=== PATIENT | female | born 1970 | race Two or more races ===

== ENCOUNTER 2025-01-26 13:45 | Outpatient (OUT) | payer MEDICAID, SELFPAY ==
--- OUTSIDE RECORDS SUMMARY | 2025-01-26 13:48 | XMS_ITS ---
Author Organization [facility] Address [address] [place] [address] Care Team Providers Care Crop Nutrition Scientist Name Role Phone Unavailable Primary Care Provider Unavailabl e Hepatitis C Status:Declined (Declined) Start date:01/13/2025 Enrollment date:01/13/2025 End date:01/13/2025 Decline reason:Unable to seek referral from outside provider/ does not use [facility] health system Continued Care and Services Coordination
--- OUTSIDE RECORDS SUMMARY | 2025-01-26 13:48 | XMS_ITS | Encounter Summary ---
Author Organization [facility] Address [address] [place], [place] [id number] Care Team Providers Care Supervisor Boiler Repair Name Role Phone Unavailable Primary Care Provider Unavailabl e Source Comments In the event this information is protected by the Federal Confidentiality of Alcohol and Drug AbusePatient Records regulations: The Federal rules restrict any use of the information to criminally investigate or prosecute any alcohol or drug abuse patient.[facility] Reason for Visit * Reason Onset Date Comments SPP Hepatology - Follow-up 01/13/2025 HCV+n ote Encounter Details Date Type Department Care Team (Latest Contact Info) Description 01/13/2025 Specialty Pharmacy [facility] [address] [place] [address] Tea Leyva RPh SPP Hepatology - Follow-up (HCV+note) Social History Tobacco Use Types Packs/Day Years Used Date Smoking Tobacco: Never Assessed Comments Unknown Sex and Gender Information Value Date Recorded Sex Assigned at Not on file Legal Sex Female 12:04 PM EDT Gender Identity Not on file Sexual Orientation Not on file documented as of this encounter Progress Notes * Tea Leyva RPh - 01/13/2025 8:55 AM EDT Chart review reveals a recent lab test performed at [facility]. Unexpected results found as part of testing for Hepatitis C (HCV) HCV RNA Date Value Ref Range Status 01/08/2025 Detected (A) Not detected Final HCV RNA (IU/mL) Date Value Ref Range Status 01/08/2025 1,210,000 (H) IU/mL Final Ordering Provider is outside provider (lab requisition) Lab result shows patient has Chronic Hepatitis C B18.2 Prior Treatment: not known Allergies: Not on File GT needs to be determined HCV Treatment plan: -Candidate for treatment: patient may be eligible for treatment but is not connected to care with [facility] provider PLAN: Unable to follow up with patient about abnormal lab result since patient does not follow [facility] provider. Recommend patient establish and follow up with own provider to discuss HCV treatment. If patient were to express interest in being evaluated for HCV treatment, please place referral to HCV Ambulatory Clinic. Engage this patient in a conversation about the value in getting treatment then place the referral. To find the referral order, type pharmacy in the order and choose Consult to [facility] Ambulatory [facility] Pharmacy - it's the third one down under procedures (referral [id number]). I will get the referral once this order is signed and would manage your patient's HCV care including ordering labs, complying with insurance formulary, creating a treatment plan and following patientuntil final viral load (SVR12) so we can document cure. Tea Leyva RPh documented in this encounter Plan of Treatment Not on file documented as of this encounter Visit Diagnoses Not on filedocumented in this encounter
--- OUTSIDE RECORDS SUMMARY | 2025-01-26 13:48 | XMS_ITS | Clinical Summary ---
Author Organization [facility] Address [address] [place] [address] Care Team Providers Care Creative Writing Professor Name Role Phone Abdirahman Taylor PA-C Primary Care Provider [phone] Allergies Active Allergy Reactions Criticality Noted Date Comments Codeine GI Intolerance High 12/13/2017 Ibuprofen GI Intolerance 06/16/2023 Medications hydrOXYzine (VISTARIL) 25 MG capsuleIndicat ions:Generaliz ed anxiety disorder,Major depressive disorder, severe (HCC) Take 1 (one) capsule (25 mg total) by mouth 3 (three) times a day as needed for itching . 30 capsule 5 01/07/20 26 Active escitalopram oxalate (LEXAPRO) 10 MG tabletIndicati ons:Generalize d anxiety disorder,Major depressive disorder, severe (HCC) Take 1 (one) tablet (10 mg total) by mouth daily . 30 tablet 11 5 01/07/20 26 Active dextroamphetam ine-amphetamin e (ADDERALL) 20 mg tablet Take 1 (one) tablet (20 mg total) by mouth 2 (two) times a day . 1 01/09/20 25 Discontinued citalopram (CELEXA) 40 MG tablet Take 1 (one) tablet (40 mg total) by mouth daily . 1 01/09/20 25 Discontinued metoclopramide (REGLAN) 10 MG tablet Take 0.5 (one-half) tablet (5 mg total) by mouth 3 (three) times a day as needed (nausea or dizziness) . 10 tablet 1 01/09/20 25 Discontinued ondansetron (ZOFRAN) 4 MG tablet Take 1 (one) tablet (4 mg total) by mouth every 8 (eight) hours as needed for nausea . 20 tablet 3 01/09/20 25 Discontinued prochlorperazi ne (Compazine) 10 MG tablet Take 1 (one) tablet (10 mg total) by mouth every 6 (six) hours as needed for nausea . 20 tablet 5 01/09/20 25 Discontinued Active Problems Problem Noted Date Diagnosed Date Alcohol use disorder, severe, dependence 025 Moderate episode of recurrent major depressive d isorder 12/23/2024 Renal stone 04/24/2023 Symptomatic cholelithiasis 09/06/2021 Assessment & Plan (09/06/2021 5:30 AM EST): RUQ pain started 2am 09/05/[address]- Gallbladder wall thickening. RUQ u/s- cholelithiasis with wall thickening- mild fluid in gallbladder wall with pericholecystic fat -wbc 8.15, afebrile, VS stable. -AST 60, ALT 152. Normal Tbili 0.2 and lipase at 163. -NPO, MIVF. Pain control -Start IV Zosyn. Acute cholecystitis 09/06/2021 Encounters Date Type Department Care Team Description 01/06/2025 8:50 AM EDT Office Visit [facility] [address] [place] [address] Abdirahman Taylor PA-C Alcohol use disorder, severe, dependence (HCC) (Primary Dx); Generalized anxiety disorder; Major depressive disorder, severe (HCC); Class 1 obesity due to excess calories with body mass index (BMI) of 30.0 to 30.9 in adult, unspecified whether serious comorbidity present 01/06/2025 Travel 12/28/2024 3:55 PM EDT - 12/29/2024 11:45 AM EDT Emergency [facility] Emergency Department [address] [place] [address] Jose Rivero, DO Discharge Disposition: Home 12/28/2024 Travel 12/23/2024 4:19 PM EDT - 12/24/2024 10:35 AM EDT Emergency [facility] Emergency Department [address] [place] [phone] Jenna Gomez MD Discharge Disposition: Home 12/23/2024 Travel from Last 3 Months Immunizations Immunization Administration Dates Next Due Hep A / Hep B([facility]) 09/10/2019 Social History Tobacco Use Types Packs/Day Years Used Date Smoking Tobacco: Every Day Cigarettes Passive Smoke Exposure: Current Smokeless Tobacco: Never Tobacco Cessation:Ready to Q uit: Not Asked; Counseling Given: Not Answered Alcohol Use Standard Drinks/Week Comments Yes 2 (1 standard drink = 0.6 oz pur e alcohol) daily Comments No Sex and Gender Information Value Date Recorded Sex Assigned at Not on file Legal Sex Female 5:32 AM EDT Gender Identity Female 12/28/2024 5:49 PM EDT Sexual Orientation Straight 12/28/2024 5: 49 PM EDT Last Filed Vital Signs Vital Sign Reading Time Taken Comments Blood Pressure 129/93 01/06/2025 8:57 AM EDT Pulse 77 01/06/2025 8:57 AM EDT Temperature 36.7 C (98.1 F) 12/28/2024 4:15 PM EDT Respiratory Rate 16 01/06/2025 8:57 AM EDT Oxygen Saturation 97% 01/06/2025 8:57 AM EDT Inhaled Oxygen Concentration - - Weight 74.4 kg (164 lb) 01/06/2025 8:57 AM EDT Height 157.5 cm (5' 2 ) 01/06/2025 8:57 AM EDT Body Mass Index 30 01/06/2025 8:57 AM EDT Plan of Treatment Upcoming Encounters Date Type Department Care Team (Late st Contact Info) Description 01/29/2025 9:00 AM EDT Office Visit [facility] [address] [place] [phone] Kymberly Hawk, YANNICK [address] [place] [address] Health Maintenance Due Date Last Done Comments CT Colonography 1969 Fecal DNA 1969 Fecal occult blood test (FOBT,FIT) 1969 Tetanus: Every 10yrs 1969 Wellness Visit 1972 HIV Screening 1984 Hepatitis C Screening 1987 Pneumococcal Vaccine: Age 50 + (1 of 2 - PCV) 1988 Pap Smear 1990 Cervical Cancer Screening 1999 HPV/Cotest 1999 Mammogram 2009 Flexible sigmoidoscopy 2019 Zoster Vaccines (2 of 2) 04/04/2022 02/07/2022 COVID-19 Vaccine (3 - season) 03/16/202402/2022, 08/03/2021 Influenza Vaccine (#1) 2025 Depression Remission Assessment (PHQ9) 11/06/2025 Colonoscopy 01/01/2028 12/31/2017 Colorectal Cancer Screening/Monitoring 01/01/2028 Procedures Procedure Name Priority Date/Time Associated Diagnosis Comments ALCOHOL, MEDICAL Add-On 12/29/2024 6:38 AM EDT MINT GREEN TOP STAT 12/28/2024 7:25 PM EDT RAINBOW DRAW STAT 12/28/2024 7:25 PM EDT RIVERA TOP STAT 12/28/2024 7:24 PM EDT LIGHT BLUE TOP STAT 12/28/2024 7:24 PM EDT LIGHT GREEN TOP STAT 12/28/2024 7:24 PM EDT LAVENDER TOP STAT 12/28/2024 7:24 PM EDT RAINBOW DRAW STAT 12/28/2024 7:24 PM EDT ALCOHOL, MEDICAL MARIA DE JESUS 12/28/2024 7:24 PM EDT URINALYSIS STAT 12/28/2024 4:00 PM EDT DRUGS OF ABUSE SCREEN, URINE STAT 12/28/2024 4:00 PM EDT ALCOHOL, MEDICAL Routine 12/23/2024 11:0 5 PM EDT CBC WITH AUTO DIFFERENTIAL STAT 12/23/2024 4:54 PM EDT LIGHT GREEN TOP STAT 12/23/2024 4:54 PM EDT RAINBOW DRAW STAT 12/23/2024 4:54 PM EDT COMPREHENSIVE METABOLIC PANEL MARIA DE JESUS 12/23/2024 4:54 PM EDT CBC WITH AUTO DIFFERENTIAL STAT 12/23/2024 4:54 PM EDT DRUGS OF ABUSE SCREEN, URINE STAT 12/23/2024 4:54 PM EDT HCG, SERUM, QUALITATIVE STAT 12/23/2024 4:54 PM EDT ALCOHOL, MEDICAL MARIA DE JESUS 12/23/2024 4:54 PM EDT from Last 3 Months Results * Alcohol Level (12/29/2024 6:38 AM EDT) Only the most recent of4 resultswithin the time period is included. Alcohol (Medical) <10.0 <10.0 mg/dL 12/29/2024 7:02 AM EDT LAB Comment:Alcohol cutoff: <10. 00 mg/dL = None Detected Blood BLOOD SPECIMEN / Unknown Venipuncture / Unknown 12/29/2024 6:38 AM EDT 12/29/2024 6:40 AM EDT us Jose Rivero DO LAB BLOOD ORDERABLES Final R esult LAB [address] [place] [address] * Mint Green Top (12/28/2024 7:25 PM EDT) Extra Tube Hold for add-ons. 12/28/2024 9:59 PM EDT LAB Comment:Auto resulted. Blood BLOOD SPECIMEN / Unknown Venipuncture / Unknown 12/28/2024 7:25 PM EDT 12/28/2024 7:28 PM EDT us Jose S Rivero DO LAB BLOOD ORDERABLES Final R esult Performing Organization Address City/[facility] Co de Phone Number LAB [address] [place] [address] * Gold Top (12/28/2024 7:24 PM EDT) Only the most recent of2 resultswithin the time period is included. Extra Tube Hold for add-ons. 12/28/2024 11:58 PM EDT LAB Comment:Auto resulted. Blood BLOOD SPECIMEN / Unknown Venipuncture / Unknown 12/28/2024 7:24 PM EDT 12/28/2024 7:28 PM EDT us Jose Quezada Rivero DO LAB BLOOD ORDERABLES Final R esult Performing Organization Address [facility] Co de Phone Number LAB [address] [place] [address] * Rivera Top (12/28/2024 7:24 PM EDT) Extra Tube Hold for add-ons. 12/28/2024 9:59 PM EDT LAB Comment:Auto resulted. Blood BLOOD SPECIMEN / Unknown Venipuncture / Unknown 12/28/2024 7:24 PM EDT 12/28/2024 7:28 PM EDT us Jose S Rivero DO LAB BLOOD ORDERABLES Final R esult Performing Organization Address City/[facility] Co de Phone Number LAB [address] [place] [address] * Lavender Top (12/28/2024 7:24 PM EDT) Extra Tube Hold for add-ons. 12/28/2024 9:59 PM EDT LAB Comment:Auto resulted. Blood BLOOD SPECIMEN / Unknown Venipuncture / Unknown 12/28/2024 7:24 PM EDT 12/28/2024 7:28 PM EDT JoseDeepFlexner DO LAB BLOOD ORDERABLES Final R esult Performing Organization Address City/[facility] Co de Phone Number LAB [address] [place] [address] * Light Blue Top (12/28/2024 7:24 PM EDT) Extra Tube Hold for add-ons. 12/28/2024 9:59 PM EDT LAB Comment:Auto resulted. Blood BLOOD SPECIMEN / Unknown Venipuncture / Unknown 12/28/2024 7:24 PM EDT 12/28/2024 7:28 PM EDT MarketMeSuitener DO LAB BLOOD ORDERABLES Final R esult Performing Organization Address City/[facility] de Phone Number LAB [address] [place] [address] * Urine Drug Screen (12/28/2024 4:00 PM EDT) Only the most recent of2 resultswithin the time period is included. Amphetamine Screen, Urine None Detected None Detected 12/28/2024 4:34 PM EDT LAB Comment:Urine Amphetamine Cu toff: < 1000 ng/mL = None Detected Barbiturate Screen, Urine None Detected None Detected 12/28/2024 4:34 PM EDT LAB Comment:Urine Barbiturates C utoff: < 200 ng/mL = None Detected Benzodiazepine Screen, Urine None Detected None Detected 12/28/2024 4:34 PM EDT LAB Comment:Urine Benzodiazepine Cutoff: < 200 ng/mL = None Detected Cannabinoid Screen, Urine None Detected None Detected 12/28/2024 4:34 PM EDT LAB Comment:Urine Cannabinoids C utoff: < 50 ng/mL = None Detected Cocaine, Screen Urine None Detected None Detected 12/28/2024 4:34 PM EDT LAB Comment:Urine Cocaine Cutoff : < 300 ng/mL = None Detected Methadone Screen, Urine None Detected None Detected 12/28/2024 4:34 PM EDT LAB Comment:Urine Methadone Cuto ff: < 300 ng/mL = None Detected Opiate Screen, Urine None Detected None Detected 12/28/2024 4:34 PM EDT LAB Comment:Urine Opiates Cutoff : < 300 ng/mL = None Detected Oxycodone Screen, Urine None Detected None Detected 12/28/2024 4:34 PM EDT LAB Comment:Urine Oxycodone Cuto ff: < 100 ng/mL = None Detected Buprenorphine, Ur None Detected None Detected 12/28/2024 4:34 PM EDT LAB Comment:Urine Buprenorphine Cutoff: < 5 ng/mL = None Detected Fentanyl, Ur None Detected None Detected 12/28/2024 4:34 PM EDT LAB Comment:Urine Fentanyl Cutof f: < 1 ng/mL = None Detected Urine URINE SPECIMEN / Unknown Collection / Unknown 12/28/2024 4:00 PM EDT 12/28/2024 4:04 PM EDT Narrative LAB - 12/28/2024 4:34 PM EDT Screen results should be used for treatment purposes only. us Jose Rivero DO URINE ORDERABLES Final Resul t LAB [address] [place] [address] * Urinalysis (12/28/2024 4:00 PM EDT) Color, Urine Yellow Colorless, Yellow 12/28/2024 6:04 PM EDT LAB Clarity, Urine Clear Clear 12/28/2024 6:04 PM EDT LAB Specific Morgan 1.009 1.005 - 1.025 12/28/2024 6:04 PM EDT LAB pH, Urine 5.5 5.0 - 7.0 12/28/2024 6:04 PM EDT LAB Protein, Urine Negative Negative mg/dL 12/28/2024 6:04 PM EDT LAB Glucose, Urine Negative Negative mg/dL 12/28/2024 6:04 PM EDT LAB Ketones, Urine Negative Negative mg/dL 12/28/2024 6:04 PM EDT LAB Bilirubin, Urine Negative Negative 12/28/2024 6:04 PM EDT LAB Urobilinogen, Urine <2.0 <2.0 mg/dL 12/28/2024 6:04 PM EDT LAB Blood, Urine Negative Negative 12/28/2024 6:04 PM EDT LAB Nitrite, Urine Negative Negative 12/28/2024 6:04 PM EDT LAB Leukocyte Esterase, Urine Negative Negative 12/28/2024 6:04 PM EDT LAB WBCs, Urine <1 0 - 5 /hpf 12/28/2024 6:04 PM EDT LAB RBCs, Urine <1 0 - 3 /hpf 12/28/2024 6:04 PM EDT LAB Bacteria, Urine None Seen None Seen /hpf 12/28/2024 6:04 PM EDT LAB Squamous Epithelial <1 0 - 4 /hpf 12/28/2024 6:04 PM EDT LAB Mucus, Urine Rare None Seen, Rare /lpf 12/28/2024 6:04 PM EDT LAB Urine URINE SPECIMEN / Unknown Collection / Unknown 12/28/2024 4:00 PM EDT 12/28/2024 4:04 PM EDT Narrative LAB - 12/28/2024 6:04 PM EDT Microscopic examination is performed on all urinalysis samples and only positive findings are reported. The test for blood on the chemical analytic portion of urinalysis may also be positive due to hemoglobinuria and myoglobinuria and if red blood cells are present they are quantified by microscopic examination. us Jose Rivero DO URINE ORDERABLES Final Resul t LAB [address] [facility] [place] [address] * (ABNORMAL) CBC Auto Differential (12/23/2024 4:54 PM EDT) [facility] WBC 10.38 4.50 - 11.00 K/mcL 12/23/2024 5:04 PM EDT LAB RBC 4.98 4.00 - 5.20 M/mcL 12/23/2024 5:04 PM EDT LAB Hemoglobin 17.0(H) 12.0 - 16.0 g/dL 12/23/2024 5:04 PM EDT LAB Hematocrit 48.0(H) 36.0 - 46.0 % 12/23/2024 5:04 PM EDT LAB MCV 96.4 80.0 - 100.0 fL 12/23/2024 5:04 PM EDT LAB MCH 34.1(H) 26.0 - 34.0 pg 12/23/2024 5:04 PM EDT LAB MCHC 35.4 31.0 - 37.0 g/dL 12/23/2024 5:04 PM EDT LAB Platelets 200 150 - 400 K/mcL 12/23/2024 5:04 PM EDT LAB RDW - CV 12.1 11.6 - 14.8 % 12/23/2024 5:04 PM EDT LAB MPV 9.6 9.4 - 12.4 fL 12/23/2024 5:04 PM EDT LAB Neutrophils 46.0 % 12/23/2024 5:04 PM EDT LAB Lymphocytes 41.9 % 12/23/2024 5:04 PM EDT LAB Monocytes 8.7 % 12/23/2024 5:04 PM EDT LAB Eosinophils 2.2 % 12/23/2024 5:04 PM T LAB Basophils 0.8 % 12/23/2024 5:04 PM T LAB IG Percent 0.40 % 12/23/2024 5:04 PM EDT LAB Comment:The IG parameter is the percentage of metamyelocytes, myelocytes and promyelocytes. An immature granulocyte count (IG) of 1% or more suggests the possibility of infection, an IG count of 3% is very likely related to an infection. Neutrophils Abs 4.78 1.70 - 7.00 K/mcL 12/23/2024 5:04 PM EDT LAB Lymphocytes Abs 4.35(H) 0.90 - 4.00 K/mcL 12/23/2024 5:04 PM T LAB Monocytes Abs 0.90 0.30 - 0.90 K/mcL 12/23/2024 5:04 PM T LAB Eosinophils Abs 0.23 0.00 - 0.50 K/mcL 12/23/2024 5:04 PM EDT LAB Basophils Abs 0.08 0.00 - 0.30 K/mcL 12/23/2024 5:04 PM EDT LAB IG Absolute 0.04 0.00 - 0.30 K/mcL 12/23/2024 5:04 PM EDT LAB Nucleated RBC 0.0 % 12/23/2024 5:04 PM EDT LAB Nucleated RBC Abs 0.00 0.00 - 0.00 K/mcL 12/23/2024 5:04 PM EDT LAB Blood BLOOD SPECIMEN / Unknown Venipuncture / Unknown 12/23/2024 4:54 PM EDT 12/23/2024 5:02 PM EDT [facility] BLOOD ORDERABLES Final Result Performing Organization Address City/[facility] Co de Phone Number LAB [address] [place] [address] * hCG, Serum, QUALITATIVE (12/23/2024 4:54 PM EDT) Pathologist [facility] Beta-hCG Qual Negative Negative 12/23/2024 5:48 PM EDT LAB Blood BLOOD SPECIMEN / Unknown Venipuncture / Unknown 12/23/2024 4:54 PM EDT 12/23/2024 5:02 PM EDT Narrative LAB - 12/23/2024 5:48 PM EDT Negative: The result is less than or equal to 5 mIU/mL of HCG. [facility] LAB BLOOD ORDERABLES Final Result Performing Organization Address City/[facility]/ZIP Co de Phone Number LAB [address] [place] [address] * (ABNORMAL) CMP (12/23/2024 4:54 PM EDT) Pathologist [facility] Sodium 141 135 - 145 mmol/L 12/23/2024 5:48 PM EDT LAB Potassium 4.3 3.5 - 5.1 mmol/L 12/23/2024 5:48 PM EDT LAB Chloride 105 98 - 108 mmol/L 12/23/2024 5:48 PM EDT LAB Bicarbonate 23 21 - 32 mmol/L 12/23/2024 5:48 PM EDT LAB Anion Gap 17 10 - 20 mmol/L 12/23/2024 5:48 PM EDT LAB Glucose 87 65 - 99 mg/dL 12/23/2024 5:48 PM EDT LAB BUN 10 8 - 25 mg/dL 12/23/2024 5:48 PM EDT LAB Creatinine 0.56 0.40 - 1.10 mg/dL 12/23/2024 5:48 PM EDT LAB eGFR 108 >=60 mL/min/1.7 3 m2 12/23/2024 5:48 PM EDT LAB Comment:Estimated GFR was ca lculated using the 2020 CKD-EPI creatinine equation. BUN/Creatinine Ratio 17.9 10.0 - 20.0 12/23/2024 5:48 PM EDT LAB Total Protein 7.7 6.0 - 8.0 g/dL 12/23/2024 5:48 PM EDT LAB Albumin 4.7 3.2 - 5.2 g/dL 12/23/2024 5:48 PM EDT LAB Calcium 9.6 8.4 - 10.2 mg/dL 12/23/2024 5:48 PM EDT LAB Alkaline Phosphatase 135 40 - 150 U/L 12/23/2024 5:48 PM EDT LAB AST 283(H) 0-35 U/L U/L 12/23/2024 5:48 PM EDT LAB ALT 464(H) 0-35 U/L U/L 12/23/2024 5:48 PM EDT LAB Total Bilirubin 0.3 0.0 - 1.3 mg/dL 12/23/2024 5:48 PM EDT LAB Blood BLOOD SPECIMEN / Unknown Venipuncture / Unknown 12/23/2024 4:54 PM EDT 12/23/2024 5:02 PM EDT Narrative LAB - 12/23/2024 5:48 PM EDT [facility] has implemented the eGFR calculation approach that does not have a coefficient for race that conforms to the NKF-ASN Task Force Recommendations. Barb Mast Christopher TELETYPE CLERK LAB BLOOD ORDERABLES Final Result LAB [address] [place] [address] from Last 3 Months Insurance [place]ICA[place] Member Subscriber Plan / Payer (Ef fective 2024-Present) Name:Danyell Lange Bonnie Relation to Subscriber:Self Name:Danyell Lange Bonnie Payer ID:Not on file Group ID:Not on file Type:Not on file Address: [place] [id number] Advance Directives For more information, please contact: [phone] * Full Code (Latest Code Status on File) Date Activated Date Inactivated Comments 04/24/2023 1:19 PM 04/26/2023 2:09 PM * Full Code Date Activated Date Inactivated Comments 09/06/2021 6:03 AM 09/06/2021 7:54 PM Care Teams Creative Writing Professor Relationship Specialty Start Date End Date Abdirahman Taylor PA-C [address] [place] [address] PCP - General Physician Manager Plant 12/24/24
--- OUTSIDE RECORDS SUMMARY | 2025-01-26 13:48 | XMS_ITS | Encounter Summary ---
Author Organization [facility] Address [address] [place] [address] Care Team Providers Care Assistant Dean Name Role Phone Paresh Aguirre MD Primary Care Provider Angie fong Encounter Details Date Type Department Care Team (Late st Contact Info) Description 01/08/2018 Telephone [facility] Medicine [address] [place] [address] Paresh Aguirre MD Social History Tobacco Use Types Packs/Day Years Used Date Smoking Tobacco: Every Day Cigarettes Smokeless Tobacco: Never Alcohol Use Standard Drinks/Week Comments Yes 14 (1 standard drink = 0.6 oz pu re alcohol) Comments Unknown Sex and Gender Information Value Date Recorded Sex Assigned at Not on file Legal Sex Female 4:57 PM EDT Gender Identity Female 02/16/2017 4:57 PM EDT Sexual Orientation Not on file documented as of this encounter Miscellaneous Notes * Telephone Encounter - Nadya Vicente - 01/08/2018 1:39 PM EDT Pt called and LMOM and I tried to return her phone call but no answer so I left a message for her to call us back. documented in this encounter Plan of Treatment Not on file documented as of this encounter Visit Diagnoses Not on filedocumented in this encounter Care Teams Assistant Dean Relationship Specialty Start Date End Date Paresh Aguirre MD PCP - General Family Medicine 02/16/17 11/12/23 documented as of this encounter
--- OUTSIDE RECORDS SUMMARY | 2025-01-26 13:48 | XMS_ITS | Encounter Summary ---
Author Organization [facility] Address [address] [place], [place] [id number] Care Team Providers Care Applied Anthropologist Name Role Phone Unavailable Primary Care Provider Unavailabl e Source Comments In the event this information is protected by the Federal Confidentiality of Alcohol and Drug AbusePatient Records regulations: The Federal rules restrict any use of the information to criminally investigate or prosecute any alcohol or drug abuse patient.[facility] Encounter Details Date Type Department Care Team (Late st Contact Info) Description 01/09/2025 Lab Requisition [facility] Laboratory [address] [place] [address] Denae North, PhD [address] [place], [place] [id number] Social History Tobacco Use Types Packs/Day Years Used Date Smoking Tobacco: Never Assessed Comments Unknown Sex and Gender Information Value Date Recorded Sex Assigned at Not on file Legal Sex Female 12:04 PM EDT Gender Identity Not on file Sexual Orientation Not on file documented as of this encounter Plan of Treatment Not on file documented as of this encounter Procedures Procedure Name Priority Date/Time Associated Diagnosis Comments BLOOD TB SCREEN, INCUBATED Routine 01/08/2025 10:47 AM EDT documented in this encounter Results * BLOOD TB SCREEN, INCUBATED (01/08/2025 10:47 AM EDT) TB Nil 0.19 <=8.00 IU/mL 01/11/2025 9:52 PM EDT [facility] TB1 Ag minus Nil <0.00 <0.35 IU/mL 01/11/2025 9:52 PM EDT [facility] TB2 Ag minus Nil 0.03 <0.35 IU/mL 01/11/2025 9:52 PM EDT [facility] TB Result Negative 01/11/2025 9:52 PM EDT [facility] Mitogen minus Nil >9.81 >=0.50 IU/mL 01/11/2025 9:52 PM EDT [facility] TB Gamma Interpretation Infection with M. tuberculosis complex is unlikely. If latent tuberculosis infection is highly suspected, a negative result does not rule out the infection. Specimens from immunocompromised patients and those <5 years of age may show false negative results. In case of a contact investigation, please repeat 8-12 weeks after a known exposure. 01/11/2025 9:52 PM EDT [facility] Blood BLOOD SPECIMEN / Unknown 01/08/2025 10:47 AM EDT 01/10/2025 7:20 PM EDT us Denae North PhD LABORATORY Final Resul t [facility] [address] [address], documented in this encounter Visit Diagnoses Not on filedocumented in this encounter
--- OUTSIDE RECORDS SUMMARY | 2025-01-26 13:48 | XMS_ITS | Encounter Summary ---
Author Organization [facility] Address [address] [place], [place] [id number] Care Team Providers Care Recruiter Coordinator Name Role Phone Unavailable Primary Care Provider Unavailabl e Source Comments In the event this information is protected by the Federal Confidentiality of Alcohol and Drug AbusePatient Records regulations: The Federal rules restrict any use of the information to criminally investigate or prosecute any alcohol or drug abuse patient.[facility] Encounter Details Date Type Department Care Team (Late st Contact Info) Description 01/09/2025 Lab Requisition [facility] Laboratory [address] [place] [address] Denae North, PhD [address] [phone] Social History Tobacco Use Types Packs/Day Years [...] Procedure Name Priority Date/Time Associated Diagnosis Comments HEPATITIS C VIRUS (HCV) RNA, QUANTITATIVE PCR, PLASMA/SERUM Routine 01/08/2025 10:48 AM EDT documented in this encounter Results * (ABNORMAL) HEPATITIS C VIRUS (HCV) RNA, QUANTITATIVE PCR, PLASMA/SERUM (01/08/2025 10:48 AM EDT) HCV RNA Detected( A) Not detected ELVIN CESIA 6800 01/10/2025 8:59 PM EDT [facility] HCV RNA (IU/mL) 1,210,000 (H) IU/mL ELVIN CESIA 6800 01/10/2025 8:59 PM EDT [facility] HCV RNA (log IU/mL) 6.08(H) Log IU/mL ELVIN CESIA 6800 01/10/2025 8:59 PM EDT [facility] Blood BLOOD SPECIMEN / Unknown 01/08/2025 10:48 AM EDT 01/09/2025 9:20 PM EDT [facility] - 01/10/2025 8:59 PM EDT cesia HCV is an in vitro nucleic acid amplification test for both the detection and quantitation of hepatitis C virus RNA, in human EDTA plasma or serum, of HCV antibody positive or HCV-infected individuals. The linear range of the assay is 15 to 100,000,000 IU/mL (1.18 - 8.00 log IU/mL). The lower limit of detection of the assay is 15 IU/mL. us Denae North PhD LABORATORY Final Resul t [facility] [address] [facility] [address] [address], documented in this encounter Visit Diagnoses Not on filedocumented in this encounter
--- OUTSIDE RECORDS SUMMARY | 2025-01-26 13:48 | XMS_ITS | Clinical Summary ---
Author Organization [facility] Address [address] [place] [place] [address] Care Team Providers Care Office Mail Clerk Name Role Phone Unavailable Primary Care Provider Unavailabl e Encounters Date Type Department Care Team Description 01/13/2025 Specialty Pharmacy [facility] [address] [place] [phone] Tea Leyva, ALESSANDRO SPP Hepatology - Follow-up (HCV+note) 01/09/2025 Lab Requisition [facility] [address] [place] [id number] Denae North, PhD 01/09/2025 Lab Requisition [facility] [address] [place] [id number] Denae North, PhD from Last 3 Months Social History Tobacco Use Types Packs/Day Years Used Date Smoking Tobacco: Never Assessed Comments Unknown Sex and Gender Information Value Date Recorded Sex Assigned at Not on file Legal Sex Female 12:04 PM EDT Gender Identity Not on file Sexual Orientation Not on file Plan of Treatment Not on file Procedures Procedure Name Priority Date/Time Associated Diagnosis Comments HEPATITIS C VIRUS (HCV) RNA, QUANTITATIVE PCR, PLASMA/SERUM Routine 01/08/2025 10:48 AM EDT BLOOD TB SCREEN, INCUBATED Routine 01/08/2025 10:47 AM EDT from Last 3 Months Results * (ABNORMAL) HEPATITIS C VIRUS (HCV) RNA, QUANTITATIVE PCR, PLASMA/SERUM (01/08/2025 10:48 AM EDT) HCV RNA Detected( A) Not detected ELVIN CESIA 6800 01/10/2025 8:59 PM EDT [facility] HCV RNA (IU/mL) 1,210,000 (H) IU/mL ELVIN CESIA 6800 01/10/2025 8:59 PM EDT [facility] HCV RNA (log IU/mL) 6.08(H) Log IU/mL ELVIN CESIA 6800 01/10/2025 8:59 PM EDT [facility] Blood BLOOD SPECIMEN / Unknown 01/08/2025 10:48 AM EDT 01/09/2025 9:20 PM EDT [facility] - 01/10/2025 8:59 PM EDT cesia [...] Denae North PhD LABORATORY Final Resul t [facility] [address] [place] [address], * BLOOD TB SCREEN, INCUBATED (01/08/2025 10:47 AM EDT) TB Nil 0.19 <=8.00 IU/mL 01/11/2025 9:52 PM EDT [facility] TB1 Ag minus Nil <0.00 <0.35 IU/mL 01/11/2025 9:52 PM EDT [facility] TB2 Ag minus Nil 0.03 <0.35 IU/mL 01/11/2025 9:52 PM EDT [facility] TB Result Negative 01/11/2025 9:52 PM EDT [facility] Mitogen minus Nil >9.81 >=0.50 IU/mL 01/11/2025 9:52 PM EDT [facility] TB Gamma Interpretation Infection with M. tuberculosis complex is unlikely. If latent tuberculosis infection is highly suspected, a negative result does not rule out the infection. Specimens from immunocompromised patients and those <5 years of age may show false negative results. In case of a contact investigation, please repeat 8-12 weeks after a known exposure. 01/11/2025 9:52 PM EDT [facility] Blood BLOOD SPECIMEN / Unknown 01/08/2025 10:47 AM EDT 01/10/2025 7:20 PM EDT us Denae North PhD LABORATORY Final Resul t [facility] [address] [address], [place] from Last 3 Months
--- OUTSIDE RECORDS SUMMARY | 2025-01-26 13:48 | XMS_ITS | Clinical Summary ---
Author Organization [facility] Address [address] [place] [address] Care Team Providers Care Hangar Attendant Name Role Phone Unavailable Primary Care Provider Unavailabl e Allergies Active Allergy Reactions Criticality Noted Date Comments Codeine Nausea Only High 12/13/2017 Medications omeprazole [address] capsuleIndication s:Gastroesophagea l reflux disease without esophagitis Take 1 capsule by mouth daily. 90 capsule 1 2 Active Additional Information Patient not taking.Reported on 05/31/2022 LORazepam 0.5 MG tabletIndications :Anxiety Take 1 tablet by mouth 2 times daily as needed for Anxiety. 60 tablet 2 2 Active Gabapentin 400 MG capsuleIndication s:Arthralgia, unspecified joint Take 1 capsule by mouth 3 times daily. 90 capsule 2 3 Active amphetamine-dextr oamphetamine 20 MG tabletIndications :Attention deficit disorder (ADD) without hyperactivity Take 1 tablet by mouth 2 times daily. 60 tablet 3 Active Citalopram 20 MG tabletIndications :Depression, unspecified depression type,Anxiety disorder, unspecified type Take 1 tablet by mouth daily. 30 tablet 5 3 Active guaiFENesin-dextr omethorphan 100-10 MG/5ML Syrup Take 10 mL by mouth every 6 hours as needed for Cough or Congestion. 240 mL 4 Active fluticasone 50 MCG/ACT Suspension nasal spray 2 sprays per nostril b.i.d. for 7 days. 16 g 4 Active Hospital, Clinic, or Other Facility Administered Medication Ordered Dose Route Frequency Start Date End Date Status cyanocobalamin (VITAMIN B12) injection 1,000 mcgIndications:Fatigue, unspecified type 1000 mcg IM EVERY 30 DAYS 11/05/2017 Activ e Active Problems Patient Care Coordination No te Formatting of this note migh t be different from the original. Per patient no PCP. Patient does not have a current PCP. 06/29/2024 Problem Noted Date Diagnosed Date Generalized abdominal pain 12/13/2017 Overview (12/13/2017): Added automatically from request for surgery [id number] Diarrhea 12/13/2017 Overview (12/13/2017): Added automatically from request for surgery [id number] Depression Immunizations Immunization Administration Dates Next Due [id number] COVID-19 monovalen t vaccine, mRNA, Pfizer, 0.3 ML 08/03/2021 Hep A/Hep B Combined Vaccine (TWINRIX) 0 Family History Medical History Relation Name Comments Colon Cancer Father Myocardial Infarction Father Prostate Cancer Father Diabetes Maternal Grandmother Depression Mother Diabetes Mother Heart Failure Mother Hypertension Mother Cancer- Other Paternal Grandmother Relation Name Status Comments Father Maternal Grandmother Mother Paternal Grandmother Social History Tobacco Use Types Packs/Day Years Used Date Smoking Tobacco: Every Day Cigarettes Smokeless Tobacco: Never Tobacco Cessation:Ready to Q uit: Not Asked; Counseling Given: Not Answered Alcohol Use Standard Drinks/Week Comments Yes 14 (1 standard drink = 0.6 oz pu re alcohol) AUDIT-C Answer Date Recorded Q1: How often do you have a drink containing alcohol? 4 or more times a week 04/09/2020 Q2: How many drinks containi ng alcohol do you have on a typical day when you are drinking? 1 or 2 0 Frequency of Binge Drinking Not on file 03/17 Depression Answer Date Recorded PHQ-9 Total Score (Interpret ation of Total Score 1-4 = Minimal depression; 5-9 = Mild depression; 10-14 = Moderate depression; 15-19 = Moderately severe depression) 21 08/28/2022 Comments No Sex and Gender Information Value Date Recorded Sex Assigned at Not on file Legal Sex Female 4:57 PM EDT Gender Identity Female 02/16/2017 4:57 PM EDT Sexual Orientation Not on file Last Filed Vital Signs Vital Sign Reading Time Taken Comments Blood Pressure 141/82 06/29/2024 6:42 AM EST Pulse 90 06/29/2024 6:42 AM EST Temperature 36.7 C (98 F) 06/29/2024 5:35 AM EST Respiratory Rate 18 06/29/2024 6:42 AM EST Oxygen Saturation 98% 06/29/2024 6:42 AM EST Inhaled Oxygen Concentration - - Weight 71.5 kg (157 lb 9.6 oz) 08/28/2022 11:50 AM EST Height 158.8 cm (5' 2.5 ) 06/29/2024 5:36 AM EST Body Mass Index 28.37 08/28/2022 11:50 AM EST Plan of Treatment Health Maintenance Due Date Last Done Comments TETANUS 1969 PNEUMOCOCCAL VACCINE SERIES (1 of 2 - PCV) 1988 TDAP (ADULT) 1988 CERVICAL CANCER SCREENING DISCUSSION 1990 MAMMOGRAM SCREENING DISCUSSION 2009 COLORECTAL CANCER SCREENING DISCUSSION 12/31/2018, 12/31/2017 HEP B VACCINE (2 of 3 - Hep B Twinrix 3-dose series) 10/08/2019 09/10/2019 ZOSTER (SHINGLES) VACCINE (2 of 2) 04/04/20222021 COVID-19 VACCINE (3 - season) 03/16/202402/2022, 08/03/2021 LIPID SCREENING 03/27/2024 03/27/2019, 11/30/2017 INFLUENZA VACCINE (#1) 2025 HEPATITIS C VIRUS SCREENING Completed 10/03/2019, 0 03/27/2019 HIV SCREENING DISCUSSION Completed 10/03/2019 Procedures Procedure Name Priority Date/Time Associated Diagnosis Comments HIV 1 AND 2 ANTIBODIES Routine 10/03/2019 2:26 PM EDT Chronic hepatitis C without hepatic coma HEPATITIS C BY PCR, QUANT Routine 10/03/2019 2:26 PM EDT Chronic hepatitis C without hepatic coma LIPID PANEL W CALCULATED LDL Routine 03/27/2019 1:46 PM EDT Routine lab draw COLONOSCOPY Routine 12/31/2017 12:10 PM EDT from Last 3 Months or Most Recently Relevant to Health Maintenance Results * HEPATITIS C BY PCR, QUANT (10/03/2019 2:26 PM EDT) Hepatitis C QN 413,000 IU/mL [facility] HCV LOG10 5.616 log10 IU/mL [facility] Comment LAB [facility] [place] [place] Comment: (NOTE) The quantitative range of this assay is 15 IU/mL to 100 million IU/mL. PERFORMED AT [facility] Blood 10/03/2019 2:26 PM EDT 10/03/2019 2:27 PM EDT us Faraz Rivas MD IMMUNOLOGY ORDERABLES Final R esult [facility] [address] [place] [address] * HIV 1 AND 2 ANTIBODIES (10/03/2019 2:26 PM EDT) HIV-1/HIV-2 ANTIBODY NONREACTIVE NONREACTIVE [address] Blood 10/03/2019 2:26 PM EDT 10/03/2019 2:27 PM EDT us Faraz Rivas MD IMMUNOLOGY ORDERABLES Final R esult [address] [address] * (ABNORMAL) LIPID PANEL W CALCULATED LDL (03/27/2019 1:46 PM EDT) CHOLESTEROL 226(H) 100 - 199 MG/DL [address] TRIGLYCERIDE 97 <150 MG/DL [address] HDL CHOLESTEROL 46 40 - 60 MG/DL [address] LDL CHOLESTEROL, CALCULATED 161(H) 0 - 100 MG/DL [address] VLDL Cholesterol, Calculated 19 5.0 - 25.0 MG/DL [address] TCHOL/HDL RATIO, MANUAL ENTER 4.[address] Comment: RISK TOTAL/HDL RATIO MEN WOMEN 1/2 AVERAGE 3.43 3.27 AVERAGE 4.97 4.44 2X AVERAGE 9.55 7.05 3X AVERAGE 23.99 11.04 Blood 03/27/2019 1:46 PM EDT 03/27/2019 1:47 PM EDT Dawn Quintanilla APRN-NEW ACCOUNTS BANKING REPRESENTATIVE CHEMISTRY ORDERABLES Fin al Result [address] [address] * COLONOSCOPY (12/31/2017 12:10 PM EDT) Anatomical Region Laterality Modality Other 12/31/2017 12:1 0 PM EDT Narrative 12/31/2017 12:31 PM EDT [facility] Patient Name: Danyell Lange Procedure Date: 12/31/2017 12:10 PM Date of : 1970 Admit Type: Outpatient Age: 47 Room: Procedure Room #2 Gender: Female Note Status: Finalized Attending MD: Nathaniel Ramirez MD Procedure: Colonoscopy Indications: Abdominal pain, Clinically significant diarrhea of unexplained origin Providers: Nathaniel Ramirez MD Patient Profile: This is a 47 year old female. Body Mass Index: 24. Laboratory tests results include no abnormalities. Previously obtained abdominal ultrasound showed no abnormalities. Referring MD: Emily Hernandez, RAVI-YANNICK, Paresh Aguirre MD Complications: No immediate complications. Medicines: Monitored Anesthesia Care, See the Anesthesia note for documentation of the administered medications Procedure: After I obtained informed consent, the scope was passed under direct vision. Throughout the procedure, the patient's blood pressure, pulse, and oxygen saturations were monitored continuously. CO2 was used. The was introduced through the anus and advanced to 20 cm into the ileum. The colonoscopy was performed without difficulty. The patient tolerated the procedure well. The quality of the bowel preparation was fair. Anatomical landmarks were photographed. Estimated blood loss: none. Findings: A few small and large-mouthed diverticula were found in the sigmoid colon. There was no evidence of diverticular bleeding. Non-bleeding external and internal hemorrhoids were found. The hemorrhoids were small and Grade I (internal hemorrhoids that do not prolapse). No other significant abnormalities were identified in a careful examination of the remainder of the colon. The terminal ileum appeared normal. There is no endoscopic evidence of polyps, ulcerations, colitis, mucosal abnormalities, pseudomembranous changes, angiodysplasia, angioectasia, fissures, fistulas, tumor or diverticulitis in the entire colon. Biopsies for histology were taken with a cold forceps from the cecum for evaluation of microscopic colitis. Impression: - Preparation of the colon was fair. - Mild diverticulosis in the sigmoid colon. There was no evidence of diverticular bleeding. - Non-bleeding external and internal hemorrhoids. - The examined portion of the ileum was normal. Recommendation: - High fiber diet. - Continue present medications. - Use original regular Metamucil one tablespoon PO daily. - Repeat colonoscopy in 10 years for surveillance. - Return to primary care physician. Procedure Code(s): --- Professional --- 19778, Colonoscopy, flexible; with biopsy, single or multiple Diagnosis Code(s): --- Professional --- K64.0, First degree hemorrhoids R10.9, Unspecified abdominal pain R19.7, Diarrhea, unspecified F10.20, Alcohol dependence, uncomplicated Z72.0, Tobacco use K57.30, Diverticulosis of large intestine without perforation or abscess without bleeding CPT copyright 2016 [employer]. All rights reserved. The codes documented in this report are preliminary and upon project finance analyst review may be revised to meet current compliance requirements. MD Nathaniel Valerio MD 12/31/2017 12:31:33 PM This report has been signed electronically. Number of Addenda: 0 Note Initiated On: 12/31/2017 12:10 PM Paresh Aguirre MD GI/BRONCH PROCEDURE ORDERABLES Final Result from Last 3 Months or Most Recently Relevant to Health Maintenance
--- OUTSIDE RECORDS SUMMARY | 2025-01-26 13:48 | XMS_ITS | Clinical Summary ---
Author Organization [facility] Address [address] [place] [address] Phone Care Team Providers Care Roof Bolter Helper Name Role Phone Paresh Aguirre MD Primary Care Provider Elena ortiz Social History Tobacco Use Types Packs/Day Years Used Date Smoking Tobacco: Never Assessed Comments Unknown Sex and Gender Information Value Date Recorded Sex Assigned at Not on file Legal Sex Female 4:24 PM EST Gender Identity Not on file Sexual Orientation Not on file Last Filed Vital Signs Vital Sign Reading Time Taken Comments Blood Pressure 133/77 11/01/2022 1:10 PM EDT Pulse 87 11/01/2022 1:10 PM EDT Temperature 36.5 C (97.7 F) 11/01/2022 1:10 PM EDT Respiratory Rate 14 11/01/2022 1:10 PM EDT Oxygen Saturation 97% 11/01/2022 1:10 PM EDT Inhaled Oxygen Concentration - - Weight - - Height 157 cm (5' 1.81 ) 11/01/2022 1:10 PM EDT Body Mass Index - - Plan of Treatment Health Maintenance Due Date Last Done Comments CT Colonography 1969 Colonoscopy 1969 Colorectal Cancer Screening 1969 FIT-DNA (Cologuard) 1969 FIT 1969 HIV Screening 1969 Lipid Panel 1969 Sigmoidoscopy 1969 Yearly Adult Physical 1969 MMR Vaccines (1 of 1 - Stand kamala series) 1970 Hepatitis C Screening 1987 Hepatitis B Vaccines (1 of 3 - 19+ 3-dose series) 1988 Cervical Cancer Screening 1990 HPV/Cotest 1990 Pap Smear 1990 DTaP/Tdap/Td Vaccines (1 - Tdap) 1991 Mammogram 2009 Pneumococcal Vaccine (1 of 1 - PCV) 2019 Zoster Vaccines (1 of 2) 2019 COVID-19 Vaccine (1 - 2023-2 5 season) 2024 Influenza Vaccine (#1) 2025 HIB Vaccines Aged Out No longer eligi ble based on patient's age to complete this topic HPV Vaccines (No Doses Required) Completed Hepatitis A Vaccines Aged Out No long er eligible based on patient's age to complete this topic IPV Vaccines Aged Out No longer eligi ble based on patient's age to complete this topic Meningococcal Vaccine Aged Out No meet yulissa eligible based on patient's age to complete this topic Rotavirus Vaccines Aged Out No longer eligible based on patient's age to complete this topic Care Teams Roof Bolter Helper Relationship Specialty Start Date End Date Paresh Aguirre MD PCP - General 11/06/22
[2025-01-26 16:01] LABS: C. Difficile PCR NEGATIVE
== END 2025-01-26 13:46 | disposition home or self-care (01) ==
LOC: LAB 13:45
PROVIDERS: PCP Nurse Practitioner Primary Care; Visit Provider Nurse Practitioner Primary Care
DX: R19.7 Diarrhea, unspecified (principal)
CPT/HCPCS: 87045; 87046; 87427; 87493

== ENCOUNTER 2025-02-03 10:18 | Emergency (ER) | payer MEDICAID, SELFPAY ==
[2025-02-03 10:29] VITALS: BP 160/80; PULSE 69; TEMP 36.4; O2SAT 98; BMI 32.0
--- OUTSIDE RECORDS SUMMARY | 2025-02-03 10:32 | XMS_ITS | Encounter Summary ---
Author Organization [facility] Address [address] [place] [address] Care Team Providers Care Workforce Manager Name Role Phone Paresh Aguirre MD Primary Care Provider Angie fong Encounter Details Date Type Department Care Team (Late st Contact Info) Description 01/08/2018 Telephone [facility] Medicine [address] [place] [address] Paresh Aguirre MD Social History [...] on filedocumented in this encounter Care Teams Workforce Manager Relationship Specialty Start Date End Date Paresh Aguirre MD PCP - General Family Medicine 02/16/17 11/12/23 documented as of this encounter
--- OUTSIDE RECORDS SUMMARY | 2025-02-03 10:32 | XMS_ITS | Clinical Summary ---
Author Organization [employer] Address [address] [place] [address] Care Team Providers Care Slate Splitting Supervisor Name Role Phone Unavailable Primary Care Provider [...] (12/13/2017): Added automatically from request for surgery [id number] Diarrhea 12/13/2017 Overview (12/13/2017): Added automatically from request for surgery [id number] Depression Immunizations Immunization Administration Dates Next Due [id number] COVID-19 monovalen t vaccine, mRNA, Pfizer, 0.3 [...] PM EDT) Hepatitis C QN 413,000 IU/[facility] LOG10 5.616 log10 IU/mL [facility] TEST INFORMATION Comment LAB [facility] Comment: (NOTE) The quantitative range of this assay is 15 IU/mL to 100 million IU/mL. PERFORMED AT [facility] Blood 10/03/2019 2:26 PM EDT 10/03/2019 2:27 PM EDT us Faraz Rivas MD IMMUNOLOGY ORDERABLES Final R esult [facility] [address] [place] [address] * HIV 1 AND 2 ANTIBODIES (10/03/2019 2:26 PM EDT) HIV-1/HIV-2 ANTIBODY NONREACTIVE NONREACTIVE [address] Blood 10/03/2019 2:26 PM EDT 10/03/2019 2:27 PM EDT us Faraz Rivas MD IMMUNOLOGY ORDERABLES Final R esult [address] [address] * (ABNORMAL) LIPID PANEL W CALCULATED LDL (03/27/2019 1:46 PM EDT) CHOLESTEROL 226(H) 100 - 199 MG/DL [address] TRIGLYCERIDE 97 <150 MG/DL [address] HDL CHOLESTEROL 46 40 - 60 MG/DL [address] LDL CHOLESTEROL, CALCULATED 161(H) 0 - 100 MG/DL [address] VLDL Cholesterol, Calculated 19 5.0 - 25.0 MG/DL [address] TCHOL/HDL RATIO, MANUAL ENTER 4.[address] Comment: RISK TOTAL/HDL RATIO MEN WOMEN 1/2 AVERAGE 3.43 3.27 AVERAGE 4.97 4.44 2X AVERAGE 9.55 7.05 3X AVERAGE 23.99 11.04 Blood 03/27/2019 1:46 PM EDT 03/27/2019 1:47 PM EDT Dawn Quintanilla APRN-ENVIRONMENTAL QUALITY ANALYST CHEMISTRY ORDERABLES Fin al Result [address] [address] * COLONOSCOPY (12/31/2017 12:10 PM EDT) Anatomical Region Laterality Modality Other 12/31/2017 12:1 0 PM EDT Narrative 12/31/2017 12:31 PM EDT [facility] Gastroenterology Patient Name: Danyell Lange Procedure Date: [...] care physician. Procedure Code(s): --- Professional --- 90484, Colonoscopy, flexible; with biopsy, single or multiple Diagnosis Code(s): --- Professional --- K64.0, First degree hemorrhoids R10.9, Unspecified abdominal pain R19.7, Diarrhea, unspecified F10.20, Alcohol dependence, uncomplicated Z72.0, Tobacco use K57.30, Diverticulosis of large intestine without perforation or abscess without bleeding CPT copyright 2016 [employer]. All rights reserved. The codes documented in this report are preliminary and upon carpenter streetcar review may be revised to meet current compliance requirements. MD Nathaniel Valerio MD 12/31/2017 12:31:33 PM This report has been signed electronically. Number of Addenda: 0 Note Initiated On: 12/31/2017 12:10 PM Paresh Aguirre MD GI/BRONCH PROCEDURE ORDERABLES Final Result from Last 3 Months or Most Recently Relevant to Health Maintenance
--- OUTSIDE RECORDS SUMMARY | 2025-02-03 10:32 | XMS_ITS | Encounter Summary ---
Author Organization [facility] Address [address] [place], [place] [id number] Care Team Providers Care Plug Grower Name Role Phone Unavailable Primary Care Provider Unavailabl e Source Comments In the event this information is protected by the Federal Confidentiality of Alcohol and Drug AbusePatient Records regulations: The Federal rules restrict any use of the information to criminally investigate or prosecute any alcohol or drug abuse patient.[facility] Encounter Details Date Type Department Care Team (Late st Contact Info) Description 01/09/[address] [facility] Laboratory [address] [place] [address] Denae North, PhD [address] [place], [place] [id number] Social History Tobacco Use Types Packs/Day Years [...] 0.19 <=8.00 IU/mL 01/11/2025 9:52 PM EDT [facility] LAB TB1 Ag minus Nil <0.00 <0.35 IU/mL 01/11/2025 9:52 PM EDT [facility] LAB TB2 Ag minus Nil 0.03 <0.35 IU/mL 01/11/2025 9:52 PM EDT [facility] TB Result Negative 01/11/2025 9:52 PM EDT [facility] LAB Mitogen minus Nil >9.81 >=0.50 IU/mL 01/11/2025 9:52 PM EDT [facility] TB Gamma Interpretation Infection with M. tuberculosis complex is unlikely. If latent tuberculosis infection is highly suspected, a negative result does not rule out the infection. Specimens from immunocompromised patients and those <5 years of age may show false negative results. In case of a contact investigation, please repeat 8-12 weeks after a known exposure. 01/11/2025 9:52 PM EDT [facility] LAB Blood BLOOD SPECIMEN / Unknown 01/08/2025 10:47 AM EDT 01/10/2025 7:20 PM EDT us Denae North PhD LABORATORY Final Resul t [facility] [address] [address], documented in this encounter Visit Diagnoses Not on filedocumented in this encounter
--- OUTSIDE RECORDS SUMMARY | 2025-02-03 10:32 | XMS_ITS | Clinical Summary ---
Author Organization [facility] Address [address] [place] [address] Care Team Providers Care Salesperson Recreational Vehicles Name Role Phone Abdirahman Taylor PA-C Primary Care Provider Allergies Active Allergy Reactions Criticality Noted Date [...] Description 01/06/2025 8:50 AM EDT Office Visit [facility] [address] [place] [address] Abdirahman Taylor PA-C Alcohol use disorder, severe, dependence (HCC) (Primary Dx); Generalized anxiety disorder; Major depressive disorder, severe (HCC); Class 1 obesity due to excess calories with body mass index (BMI) of 30.0 to 30.9 in adult, unspecified whether serious comorbidity present 01/06/2025 Travel 12/28/2024 3:55 PM EDT - 12/29/2024 11:45 AM EDT Emergency [facility] Emergency Department [address] [place] [address] Jose Rivero, DO Discharge Disposition: Home 12/28/2024 Travel 12/23/2024 4:19 PM EDT - 12/24/2024 10:35 AM EDT Emergency [facility] Emergency Department [address] [place] [address] Jenna Gomez MD Discharge Disposition: Home 12/23/2024 [...] 01/06/2025 8:57 AM EDT Plan of Treatment Health Maintenance Due Date [...] 6:38 AM EDT 12/29/2024 6:40 AM EDT Jose Rivero DO LAB BLOOD ORDERABLES Final R esult Performing Organization Address [facility]/State[facility] Co de Phone Number LAB [address] [place] [address] * Mint Green Top (12/28/2024 7:25 PM EDT) Extra Tube Hold for add-ons. 12/28/2024 9:59 PM EDT LAB Comment:Auto resulted. Blood BLOOD SPECIMEN / Unknown Venipuncture / Unknown 12/28/2024 7:25 PM EDT 12/28/2024 7:28 PM EDT us Jose Rivero DO LAB BLOOD ORDERABLES Final R esult Performing Organization Address [facility] Co de Phone Number LAB [address] [place] [address] * Gold Top (12/28/2024 7:24 PM EDT) Only the most recent of2 resultswithin the time period is included. Extra Tube Hold for add-ons. 12/28/2024 11:58 PM EDT LAB Comment:Auto resulted. Blood BLOOD SPECIMEN / Unknown Venipuncture / Unknown 12/28/2024 7:24 PM EDT 12/28/2024 7:28 PM EDT Jose Rivero DO LAB BLOOD ORDERABLES Final R esult Performing Organization Address [facility] Co de Phone Number LAB [address] [place] [address] * Rivera Top (12/28/2024 7:24 PM EDT) Extra Tube Hold for add-ons. 12/28/2024 9:59 PM EDT LAB Comment:Auto resulted. Blood BLOOD SPECIMEN / Unknown Venipuncture / Unknown 12/28/2024 7:24 PM EDT 12/28/2024 7:28 PM EDT Jose Rivero DO LAB BLOOD ORDERABLES Final R esult Performing Organization Address [facility] Co de Phone Number LAB [address] [place] [address] * Lavender Top (12/28/2024 7:24 PM EDT) Extra Tube Hold for add-ons. 12/28/2024 9:59 PM EDT LAB Comment:Auto resulted. Blood BLOOD SPECIMEN / Unknown Venipuncture / Unknown 12/28/2024 7:24 PM EDT 12/28/2024 7:28 PM EDT Jose Rivero DO LAB BLOOD ORDERABLES Final R esult LAB [address] [place] [address] * Light Blue Top (12/28/2024 7:24 PM EDT) Pathologist [facility] Extra Tube Hold for add-ons. 12/28/2024 9:59 PM EDT LAB Comment:Auto resulted. Blood BLOOD SPECIMEN / Unknown Venipuncture / Unknown 12/28/2024 7:24 PM EDT 12/28/2024 7:28 PM EDT Jose Rivero LAB BLOOD ORDERABLES Final R esult Performing Organization Address City/[facility] Co de Phone Number LAB [address] [place] [address] * Urine Drug Screen (12/28/2024 4:00 PM EDT) Only the most recent of2 resultswithin the time period is included. [facility] Amphetamine Screen, Urine None Detected None Detected [...] Rivero DO URINE ORDERABLES Final Resul t Performing Organization Address City/State[facility] Co de Phone Number LAB [address] [place] [address] * Urinalysis (12/28/2024 4:00 PM EDT) Color, Urine Yellow Colorless, Yellow 12/28/2024 6:04 PM EDT LAB Clarity, Urine Clear Clear 12/28/2024 6:04 PM EDT LAB Specific [place] 1.009 1.005 - 1.025 12/28/2024 6:04 PM [...] URINE ORDERABLES Final Resul t LAB [address] [place] [address] * (ABNORMAL) CBC Auto Differential (12/23/2024 4:54 PM EDT) WBC 10.38 4.50 - 11.00 K/mcL 12/23/2024 [...] LAB Eosinophils 2.2 % 12/23/2024 5:04 PM EDT LAB Basophils 0.8 % 12/23/2024 5:04 PM EDT LAB IG Percent 0.40 % 12/23/2024 5:04 [...] 0.90 - 4.00 K/mcL 12/23/2024 5:04 PM EDT LAB Monocytes Abs 0.90 0.30 - 0.90 K/mcL 12/23/2024 5:04 PM EDT LAB Eosinophils Abs 0.23 0.00 - 0.50 [...] 4:54 PM EDT 12/23/2024 5:02 PM EDT Barb White MEDICAL STAFFING COORDINATOR LAB BLOOD ORDERABLES Final Result LAB [address] [place] [address] * hCG, Serum, QUALITATIVE (12/23/2024 4:54 PM EDT) Beta-hCG Qual Negative Negative 12/23/2024 5:48 PM EDT LAB Blood BLOOD SPECIMEN / Unknown Venipuncture / Unknown 12/23/2024 4:54 PM EDT 12/23/2024 5:02 PM EDT Narrative LAB - 12/23/2024 5:48 PM EDT Negative: The result is less than or equal to 5 mIU/mL of HCG. Barb White [facility] LAB BLOOD ORDERABLES Final Result Performing Organization Address City/[facility] Co de Phone Number LAB [address] [place] [address] * (ABNORMAL) CMP (12/23/2024 4:54 PM EDT) Sodium 141 135 - 145 mmol/L 12/23/2024 [...] Narrative LAB - 12/23/2024 5:48 PM EDT [facility] Services has implemented the eGFR calculation approach that does not have a coefficient for race that conforms to the NKF-ASN Task Force Recommendations. us Barb White [facility] LAB BLOOD ORDERABLES Final Result LAB [address] [place] [address] from Last 3 Months Insurance MEDICAID [place] Advance Directives For more information, please contact: [phone] * Full Code (Latest Code Status on File) Date Activated Date Inactivated Comments 04/24/2023 1:19 PM 04/26/2023 2:09 PM * Full Code Date Activated Date Inactivated Comments 09/06/2021 6:03 AM 09/06/2021 7:54 PM Care Teams Salesperson Recreational Vehicles Relationship Specialty Start Date End Date Abdirahman Taylor PA-C [address] [place] [address] PCP - General Physician Director Government 12/24/24
--- OUTSIDE RECORDS SUMMARY | 2025-02-03 10:32 | XMS_ITS | Encounter Summary ---
Author Organization [facility] Address [address] [place], [place] [id number] Care Team Providers Care Meat Counter Clerk Name Role Phone Unavailable Primary Care Provider Unavailabl e Source Comments In the event this information is protected by the Federal Confidentiality of Alcohol and Drug AbusePatient Records regulations: The Federal rules restrict any use of the information to criminally investigate or prosecute any alcohol or drug abuse patient.[facility] Encounter Details Date Type Department Care Team (Late st Contact Info) Description 01/09/2025 Lab Requisition [facility] Laboratory [address] [place] [address] Denae oNrth, PhD [address] [place] [id number] Social History Tobacco Use Types Packs/Day Years [...] ELVIN CESIA 6800 01/10/2025 8:59 PM EDT [facility] HCV RNA (IU/mL) 1,210,000 (H) IU/mL ELVIN CESIA 6800 01/10/2025 8:59 PM EDT [facility] LAB HCV RNA (log IU/mL) 6.08(H) Log IU/mL ELVIN CESIA 6800 01/10/2025 8:59 PM EDT [facility] Blood BLOOD SPECIMEN / Unknown 01/08/2025 10:48 AM EDT 01/09/2025 9:20 PM EDT [facility] LAB - 01/10/2025 8:59 PM EDT cesia [...] Denae North PhD LABORATORY Final Resul t [facility] [address] [facility] [address] [address], documented in this encounter Visit Diagnoses Not on filedocumented in this encounter
--- OUTSIDE RECORDS SUMMARY | 2025-02-03 10:32 | XMS_ITS | Clinical Summary ---
Author Organization [facility] Address [address] [place] [address] Care Team Providers Care High School Coordinator Name Role Phone Unavailable Primary Care Provider Unavailabl e Encounters Date Type Department Care Team Description 01/13/2025 Specialty Pharmacy [facility] [address] [place] [phone] Tea Leyva, ALESSANDRO SPP Hepatology - Follow-up (HCV+note) 01/09/2025 Lab Requisition [facility] [address] [place] [address] Denae North, PhD 01/09/2025 Lab Requisition [facility] [address] [place] [address] Denae North, PhD from Last 3 Months [...] ELVIN CESIA 6800 01/10/2025 8:59 PM EDT [facility] LAB HCV RNA (IU/mL) 1,210,000 (H) IU/mL ELVIN CESIA 6800 01/10/2025 8:59 PM EDT [facility] LAB HCV RNA (log IU/mL) 6.08(H) Log IU/mL ELVIN CESIA 6800 01/10/2025 8:59 PM EDT [facility] LAB Blood BLOOD SPECIMEN / Unknown 01/08/2025 10:48 AM EDT 01/09/2025 9:20 PM EDT [facility] LAB - 01/10/2025 8:59 PM EDT cesia [...] Denae North PhD LABORATORY Final Resul t [facility] [address] [place] [address], * BLOOD TB SCREEN, INCUBATED (01/08/2025 10:47 AM EDT) TB Nil 0.19 <=8.00 IU/mL 01/11/2025 9:52 PM EDT [facility] TB1 Ag minus Nil <0.00 <0.35 IU/mL 01/11/2025 9:52 PM EDT [facility] TB2 Ag minus Nil 0.03 <0.35 IU/mL 01/11/2025 9:52 PM EDT [facility] TB Result Negative 01/11/2025 9:52 PM EDT [facility] Mitogen minus Nil >9.81 >=0.50 IU/mL 01/11/2025 9:52 PM EDT [facility] TB Gamma Interpretation Infection with M. tuberculosis complex is unlikely. If latent tuberculosis infection is highly suspected, a negative result does not rule out the infection. Specimens from immunocompromised patients and those <5 years of age may show false negative results. In case of a contact investigation, please repeat 8-12 weeks after a known exposure. 01/11/2025 9:52 PM EDT [facility] LAB Blood BLOOD SPECIMEN / Unknown 01/08/2025 10:47 AM EDT 01/10/2025 7:20 PM EDT us Denae North PhD LABORATORY Final Resul t [facility] [address] [address], [place] from Last 3 Months
[2025-02-03 11:13] LABS: Hematocrit 44.4 % (36.0-48.0); Hemoglobin 16.0 g/dL (12.0-16.0); Immature Granulocytes Abs Auto 0.03 10^3/uL (0.00-0.03); Immature Granulocytes Pct Auto 0.3 % (0.0-0.5); Lymphocytes Absolute Auto 2.4 10^3/uL (1.2-3.8); Mean Corpuscular HGB Conc 36.0 g/dL (29.9-35.2); Mean Corpuscular Hemoglobin 35.6 pg (26.7-34.0); Mean Corpuscular Volume 98.7 fL (81.0-99.0); Platelet Count 179 10^3/uL (150-450); Red Blood Count 4.50 10^6/uL (4.20-5.40); White Blood Count 9.1 10^3/uL (4.0-11.0)
[2025-02-03] MEDS: DICYCLOMINE HCL 20 MG/2 ML VIAL IM (11:17)
[2025-02-03 11:24] LABS: Alanine Aminotransferase 208 U/L (14-59); Albumin Globulin Ratio 1.0; Albumin Level 3.9 g/dL (3.4-5.0); Alkaline Phosphatase 135 U/L (46-116); Anion Gap 17.3; Aspartate Amino Transferase 93 U/L (15-37); Blood Urea Nitrogen 10.0 mg/dL (7.0-18.0); Calcium 9.2 mg/dL (8.5-10.1); Carbon Dioxide 21.8 mmol/L (21.0-32.0); Chloride 106 mmol/L (98-107); Estimated GFR (African America >60 (>=60 mL/min/1.73m^2); Estimated GFR (Non-African Ame >60 (>=60 mL/min/1.73m^2); Globulin 3.8 g/dL; Glucose 83 mg/dL (74-106); Lipase 382.0 U/L (16.0-77.0); Potassium 4.1 mmol/L (3.5-5.1); Sodium 141 mmol/L (136-145); Total Protein 7.7 g/dL (6.4-8.2)
[2025-02-03] MEDS: LOPERAMIDE HCL 2 MG CAPSULE 4 MG PO (11:46)
--- NOTE | 2025-02-03 15:06 | ED.GENADUL1 ---
HPI HPI - General Adult General Chief complaint: Nausea/Vomiting/Diarrhea Stated complaint: DIARRHEA Time Seen by Provider: 02/03/25 10:36 Source: patient Mode of arrival: walk-in Limitations: no limitations History of Present Illness HPI narrative: [place] went for detox from alcohol almost 3 weeks ago, but since then the patient has been having diarrhea according to her she is having multiple episodes of loose stool that she keep replacing with drinking water she have no difficulty eating or drinking and she have no nausea vomiting The patient main concern is the diarrhea No dizziness no other concerns of dehydration and no abdominal pain and no blood in stool no mucus in stool She already had a stool sample evaluated by her primary care doctor and she was looking for the result Related Data Home Medications �Medication �Instructions �Recorded �Confirmed calcium polycarbophil 625 mg mg 02/03/25 tablet (Fiber-Lax) electrolytes-dextrose oral ml 02/03/25 solution (Pedialyte oral solution) escitalopram oxalate 10 mg tablet mg 02/03/25 hydroxyzine pamoate 25 mg capsule mg 02/03/25 loperamide 2 mg tablet mg 02/03/25 (Anti-Diarrheal (loperamide)) melatonin 10 mg capsule mg 02/03/25 prazosin 1 mg capsule mg 02/03/25 trazodone 50 mg tablet mg 02/03/25 Previous Rx's �Medication �Instructions �Recorded dicyclomine 20 mg tablet 20 mg PO QID PRN abdominal pain 02/03/25 #20 tabs loperamide 2 mg capsule 2 mg PO QID PRN loose stool #20 02/03/25 caps Allergies Allergy/AdvReac Type Severity Reaction Status Date / Time No Known Drug Allergies Allergy Verified 02/03/25 10:33 Review of Systems ROS Status of ROS 10 or more systems reviewed and unremarkable except as noted in history and below PFSH PFSH Social History Little interest or pleasure in doing things: not at all Feeling down, depressed, or hopeless: not at all Exam Narrative Exam Narrative: Nurses notes and vital signs reviewed and patient is not hypoxic. General: Well-appearing and in no apparent distress. Skin: Warm, dry, no pallor noted. No rash. Head: Normocephalic, atraumatic. Neck: Supple, non-tender. Eye: Pupils are equal, round and EOMI. No scleral icterus. Ears, Nose, Mouth, and Throat: TM are clear, no nasal mucosal hypertrophy. Oral mucosa is moist, no posterior oropharynx erythema, uvula is mid-line Cardiovascular: Regular Rate and Rhythm without murmur, gallop or rub. Respiratory: No accessory muscle use or respiratory distress. Lungs are clear to auscultation, no wheezing, rales or rhonchi Chest Wall: no tenderness Back: No midline thoracic or lumbar vertebral tenderness. No CVA tenderness Musculoskeletal: normal ROM, no calf or popliteal tenderness, no lower extremity edema/swelling GI: Abdomen is soft, non-distended. Normal bowel sounds. No masses appreciated. No tenderness to palpation. No rebound, guarding, or rigidity noted. Neurological: A&O x4. No cranial nerve dysfunction observed Constitutional Vital Signs, click to edit/add: Last Vital Signs Temp 97.6 F 02/03/25 10:29 Pulse 69 02/03/25 10:29 Resp 18 02/03/25 10:29 BP 160/80 H 02/03/25 10:29 Pulse Ox 98 02/03/25 10:29 O2 Del Method Room Air 02/03/25 10:29 Course Vital Signs Vital signs: Vital Signs Temperature 97.6 F 02/03/25 10:29 Pulse Rate 69 02/03/25 10:29 Respiratory Rate 18 02/03/25 10:29 Blood Pressure 160/80 H 02/03/25 10:29 Pulse Oximetry 98 02/03/25 10:29 Oxygen Delivery Method Room Air 02/03/25 10:29 Temperature 97.6 F 02/03/25 10:29 Pulse Rate 69 02/03/25 10:29 Respiratory Rate 18 02/03/25 10:29 Blood Pressure 160/80 H 02/03/25 10:29 Pulse Oximetry 98 02/03/25 10:29 Oxygen Delivery Method Room Air 02/03/25 10:29 Medical Decision Making MDM Narrative Medical decision making narrative: The patient stool sample was tested for C. difficile and was negative in addition to come by Shigella and Salmonella and was negative to CBC and chemistry obtained just to make sure that the patient does not have any white blood cell elevation or dehydration signs and the patient was found to have some mild elevation in the liver enzyme which could be secondary to the history of alcohol abuse and the patient lipase was elevated Right now the patient does not have any abdominal pain her lipase being elevated could be secondary to alcohol as well Right now supportive care with loperamide in addition to Bentyl and the patient was referred to GI for further evaluation and possible need for pancreatic enzymes The patient is to follow up with primary care physician in next 2-3 days or to return to the emergency department should any of the signs or symptoms worsen or new symptoms develop. The patient agrees with the following Diagnosis and Treatment plan and the patient will be discharged home. Lab Data Labs: Lab Results 02/03/25 Range/Units 11:01 WBC 9.1 (4.0-11.0) 10^3/uL RBC 4.50 (4.20-5.40) 10^6/uL Hgb 16.0 (12.0-16.0) g/dL Hct 44.4 (36.0-48.0) % MCV 98.7 (81.0-99.0) fL MCH 35.6 H (26.7-34.0) pg MCHC 36.0 H (29.9-35.2) g/dL RDW 11.5 (11.0-15.0) % Plt Count 179 (150-450) 10^3/uL MPV 10.9 (9.5-13.5) fL Neut % (Auto) 62.9 (43.0-75.0) % Lymph % (Auto) 26.5 (20.5-60.0) % [place] % (Auto) 8.2 (1.7-12.0) % Eos % (Auto) 1.3 (0.9-7.0) % Baso % (Auto) 0.8 (0.2-2.0) % Neut # (Auto) 5.7 (1.4-6.5) 10^3/uL Lymph # (Auto) 2.4 (1.2-3.8) 10^3/uL [place] # (Auto) 0.7 (0.3-0.8) 10^3/uL Eos # (Auto) 0.1 (0.0-0.7) 10^3/uL Baso # (Auto) 0.1 (0.0-0.1) 10^3/uL Abs Immat Gran (auto) 0.03 (0.00-0.03) 10^3/uL Imm/Tot Granulo (auto) 0.3 (0.0-0.5) % Sodium 141 (136-145) mmol/L Potassium 4.1 (3.5-5.1) mmol/L Chloride 106 (98-107) mmol/L Carbon Dioxide 21.8 (21.0-32.0) mmol/L Anion Gap 17.3 BUN 10.0 (7.0-18.0) mg/dL Creatinine 0.70 (0.55-1.02) mg/dL Est GFR ( Amer) >60 (>=60 mL/min/1.73m^2) Est GFR (Non-Af Amer) >60 (>=60 mL/min/1.73m^2) BUN/Creatinine Ratio 14.3 Glucose 83 (74-106) mg/dL Calcium 9.2 (8.5-10.1) mg/dL Total Bilirubin 0.5 (0.2-1.0) mg/dL AST 93 H (15-37) U/L ALT 208 H (14-59) U/L Alkaline Phosphatase 135 H (46-116) U/L Total Protein 7.7 (6.4-8.2) g/dL Albumin 3.9 (3.4-5.0) g/dL Globulin 3.8 g/dL Albumin/Globulin Ratio 1.0 Lipase 382.0 H (16.0-77.0) U/L Discharge Plan Discharge Chief Complaint: Nausea/Vomiting/Diarrhea Clinical Impression: Diarrhea Patient Disposition: Home, Self-Care Time of Disposition Decision: 11:37 Condition: Good Prescriptions / Home Meds: New loperamide 2 mg capsule 2 mg PO QID PRN (Reason: loose stool) Qty: 20 0RF dicyclomine 20 mg tablet 20 mg PO QID PRN (Reason: abdominal pain) Qty: 20 0RF No Action trazodone 50 mg tablet prazosin 1 mg capsule loperamide [Anti-Diarrheal (loperamide)] 2 mg tablet calcium polycarbophil [Fiber-Lax] 625 mg tablet electrolytes-dextrose [Pedialyte] Solution hydroxyzine pamoate 25 mg capsule escitalopram oxalate 10 mg tablet melatonin 10 mg capsule Print Language: Togolese Instructions: Chronic Diarrhea (DC) Referrals: HAVEN MORALES [Physician, Gastroenterology] - 1 week Arian Barney NP [Primary Care Provider] - 1 week Discharge Date/Time: 02/03/25 11:52
== END 2025-02-03 11:52 | disposition home or self-care (01) ==
PROVIDERS: Emergency Provider Emergency Medicine; PCP Nurse Practitioner Primary Care
DX: R19.7 Diarrhea, unspecified (principal); F10.11 Alcohol abuse, in remission
CPT/HCPCS: 36415; 80053; 83690; 85025; 96372; 99284; J0500